=== PATIENT | female | born 1970 | race American Indian/Alaskan Native ===

== ENCOUNTER 2019-02-24 06:30 | Emergency (ER) | payer OTHER ==
[2019-02-24 06:40] VITALS: BP 104/80
[2019-02-24 06:56] LABS: Basophils % (Auto) 0.3 % (0.0-1.8); Hematocrit 43.6 % (30.3-42.9); Hemoglobin 14.8 gm/dl (10.1-14.3); Lymphocytes # (Auto) 0.8 K/mm3 (1.2-5.4); Lymphocytes % (Auto) 11.5 % (13.4-35.0); Mean Corpuscular HGB Conc 34 % (30-34); Mean Corpuscular Volume 97 fl (79-97); Monocytes # (Auto) 0.3 K/mm3 (0.0-0.8); Monocytes % (Auto) 3.8 % (0.0-7.3); Platelet Count 272 K/mm3 (140-440); Red Blood Count 4.49 M/mm3 (3.65-5.03); Red Cell Distribution Width 13.9 % (13.2-15.2)
[2019-02-24 07:43] LABS: Bilirubin,Urine NEG (Negative); Blood,Urine MOD (Negative); Color,Urine Yellow (Yellow); Mucus,Urine 1+ /HPF; Protein,Urine <15 mg/dL mg/dL (Negative); Urobilinogen,Urine < 2.0 mg/dL (<2.0)
[2019-02-24 08:22] LABS: Alanine Aminotransferase 23 units/L (7-56); Albumin 3.9 g/dL (3.9-5); BUN/Creatinine Ratio 18; Blood Urea Nitrogen 9 mg/dL (7-17); Calcium 8.9 mg/dL (8.4-10.2); Hemolysis Index 41
[2019-02-24] MEDS ORDERED: NACL 0.9% 1000 ML 1,000 ML IV ONE (09:20)
[2019-02-24] MEDS ORDERED: ZOFRAN IV ONE (09:20)
[2019-02-24] MEDS ORDERED: TORADOL IV ONE (09:20)
--- NOTE | 2019-02-24 09:22 | Emergency Department Report ---
HPI - General Chief Complaint: Nausea/Vomiting/Diarrhea Time Seen by Provider: 02/24/19 09:19 - HPI HPI: 48 yo with 1 day hx of diarrhea, diffuse abd pain; and vomiting in ER. Pain is achy. 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 Ambulatory on arrival pm addisons on hydrocort ED Past Medical Hx - Past Medical History Previous Medical History?: Yes Additional medical history: radha's - Surgical History Past Surgical History?: Yes Additional Surgical History: ectopic - Family History Family history: no significant - Social History Smoking Status: Never Smoker Substance Use Type: None - Medications Home Medications: Home Medications Medication Instructions Recorded Confirmed Last Taken Type Ondansetron [Zofran Odt] 4 mg PO Q8HR PRN #10 tab.rapdis 02/24/19 Unknown Rx Pantoprazole [Protonix] 40 mg PO QDAY #30 tablet 02/24/19 Unknown Rx ED Review of Systems ROS: Stated complaint: ADDISONS DISEASE Other details as noted in HPI Comment: All other systems reviewed and negative Physical Exam - Physical Exam Vital Signs: Vital Signs 02/24/19 06:39 Temperature 97.6 F Pulse Rate 81 Respiratory 16 Rate Blood Pressure 104/80 O2 Sat by Pulse 96 Oximetry Physical Exam: a/o x 4; no focal def s1s2 lungs cta diffuse abd pain; pain on abd palp hafsa rlq no cva tenderness ED Course Vital Signs 02/24/19 06:39 Temperature 97.6 F Pulse Rate 81 Respiratory 16 Rate Blood Pressure 104/80 O2 Sat by Pulse 96 Oximetry ED Medical Decision Making - Lab Data Result diagrams: 02/24/19 06:40 02/24/19 06:40 - Radiology Data Radiology results: report reviewed, image reviewed - Medical Decision Making Vital Signs 02/24/19 02/24/19 02/24/19 06:39 09:58 10:00 Temperature 97.6 F Pulse Rate 81 Respiratory 16 18 18 Rate Blood Pressure 104/80 O2 Sat by Pulse 96 99 Oximetry Labs 02/24/19 02/24/19 02/24/19 06:40 06:40 06:40 WBC 6.7 RBC 4.49 Hgb 14.8 H Hct 43.6 H MCV 97 MCH 33 H MCHC 34 RDW 13.9 Plt Count 272 Lymph % (Auto) 11.5 L Harmon % (Auto) 3.8 Eos % (Auto) 0.0 Baso % (Auto) 0.3 Lymph # 0.8 L Harmon # 0.3 Eos # 0.0 Baso # 0.0 Seg Neutrophils % 84.4 H Seg Neutrophils # 5.7 Sodium 138 Potassium 4.2 Chloride 106.6 Carbon Dioxide 19 L Anion Gap 17 BUN 9 Creatinine 0.5 L Estimated GFR > 60 BUN/Creatinine Ratio 18 Glucose 117 H Calcium 8.9 Total Bilirubin 1.40 H AST 49 H ALT 23 Alkaline Phosphatase 107 Total Protein 7.3 Albumin 3.9 Albumin/Globulin Ratio 1.1 Lipase 20 HCG, Qual Negative Urine Color Urine Turbidity Urine pH Ur Specific Cis[place] Urine Protein Urine Glucose (UA) Urine Ketones Urine Blood Urine Nitrite Urine Bilirubin Urine Urobilinogen Ur Leukocyte Esterase Urine WBC (Auto) Urine RBC (Auto) U Epithel Cells (Auto) Urine Mucus 02/24/19 07:17 WBC RBC Hgb Hct MCV MCH MCHC RDW Plt Count Lymph % (Auto) Harmon % (Auto) Eos % (Auto) Baso % (Auto) Lymph # Harmon # Eos # Baso # Seg Neutrophils % Seg Neutrophils # Sodium Potassium Chloride Carbon Dioxide Anion Gap BUN Creatinine Estimated GFR BUN/Creatinine Ratio Glucose Calcium Total Bilirubin AST ALT Alkaline Phosphatase Total Protein Albumin Albumin/Globulin Ratio Lipase HCG, Qual Urine Color Yellow Urine Turbidity Hazy Urine pH 5.0 Ur Specific C[place] 1.024 Urine Protein <15 mg/dl Urine Glucose (UA) Neg Urine Ketones 20 Urine Blood Mod Urine Nitrite Neg Urine Bilirubin Neg Urine Urobilinogen < 2.0 Ur Leukocyte Esterase Tr Urine WBC (Auto) 4.0 Urine RBC (Auto) 6.0 U Epithel Cells (Auto) 9.0 Urine Mucus 1+ labs noted CT noted 1L NS/zofran and medicated for pain- with relief dc home with GI follow up this week. - Differential Diagnosis choley/pancreatitis/gastrenteritis Critical care attestation.: If time is entered above; I have spent that time in minutes in the direct care of this critically ill patient, excluding procedure time. ED Disposition Clinical Impression: Abdominal pain Disposition: DC-01 TO HOME OR SELFCARE Is pt being admited?: No Does the pt Need Aspirin: No Condition: Stable Instructions: Abdominal Pain (ED) Additional Instructions: bland diet advance as tolerated hydrate well with water meds as ordered today activity as tolerated follow up with GI MD this week referrals below home meds as we discussed Prescriptions: Pantoprazole [Protonix] 40 mg PO QDAY #30 tablet Ondansetron [Zofran Odt] 4 mg PO Q8HR PRN #10 tab.rapdis PRN Reason: Vomiting Referrals: MARINA ROCHA MD [Staff Physician] - 3-5 Days ANGELO TORRES MD [Staff Physician] - 3-5 Days VALE CORONA MD [Staff Physician] - 3-5 Days Forms: Work/School Release Form(ED) Time of Disposition: 12:54
--- NOTE | 2019-02-24 12:10 | Cat Scan Report ---
CT ABDOMEN AND PELVIS WITH CONTRAST HISTORY: diffuse abd pain with diarrhea COMPARISON: None. TECHNIQUE: Axial CT images were obtained through the abdomen and pelvis after 100 cc of Omnipaque 350 intravenously. Sagittal and coronal reformatted images. All CT scans at this location are performed using CT dose reduction for ALARA by means of automated exposure control. FINDINGS: CT ABDOMEN: Lung Bases: Clear. Liver: No significant abnormality. Biliary: No significant abnormality. Spleen: No significant abnormality. Unenlarged. Pancreas: No significant abnormality. Adrenals: No significant abnormality. Kidneys: A 2.4 cm fat and soft tissue containing lesion is identified in the superior right kidney. T his is highly suggestive of an incidental angiomyolipoma. The left kidney and collecting systems are unremarkable. Lymphatics: No lymphadenopathy. Vasculature: No significant abnormality. Bowel/Peritoneum: No significant abnormality. No free air. Normal appendix. CT PELVIS: : The uterus is anteverted. 2 small exophytic uterine fibroids are identified from the uterine fund us measuring up to 1.5 cm. The adnexa are unremarkable. There is trace pelvic fluid which is probably physiologic. Osseous Structures: No significant abnormality. Additional Findings: None IMPRESSION: No acute inflammatory process is identified in the abdomen or pelvis. Minimal uterine fibroid disease. 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 Signer Name: Sami San Jr, MD Signed: 02/24/2019 12:05 PM Workstation Name: [id number]
== END 2019-02-24 14:50 | disposition home or self-care (01) ==
LOC: ED 06:30
DX: R10.84 Generalized abdominal pain (principal); R11.2 Nausea with vomiting, unspecified; E27.1 Primary adrenocortical insufficiency; Z88.0 Allergy status to penicillin
CPT/HCPCS: 36415; 74177; 80053; 81001; 83690; 84703; 85025; 96361; 96374; 96375; 99284; J1885; J2405; J7030; Q9967